=== PATIENT | male | born 2000 | race Caucasian/White ===

== ENCOUNTER 2019-05-20 19:20 | Emergency (ER) | payer BC ==
[~2019-05-20] VITALS: Ht 182.9 cm; Wt 95.5 kg
[2019-05-20 19:37] VITALS: BP 137/72; Ht 182.9 cm; Wt 95.5 kg
[2019-05-20] MEDS ORDERED: ERYTHROMYCIN OPT1 GM RIGHT EYE (21:06)
== END 2019-05-20 21:32 | disposition home or self-care (01) ==
LOC: D.ER 19:20
DX: S05.01XA Injury of conjunctiva and corneal abrasion without foreign body, right eye, initial encounter (principal); X58.XXXA Exposure to other specified factors, initial encounter